=== PATIENT | female | born 1985 | race Caucasian/White ===

== ENCOUNTER → 2017-10-22 | Outpatient (CLI) | payer OTHER | LOC: PLD 14:15 → LAB SHORT 14:15 | DX: D23.9 Other benign neoplasm of skin, unspecified (principal) | CPT/HCPCS: 88305 ==

== ENCOUNTER → 2019-01-13 | Outpatient (CLI) | payer OTHER ==
[2019-01-17 16:06] LABS: HPV 16 Negative (Negative); HPV 18 Negative (Negative); HPV OTHER HR TYPES Negative (Negative)
== END | disposition home or self-care (01) ==
LOC: LAB 14:44 → LAB SHORT 14:44
PROVIDERS: Obstetrics & Gynecology
DX: Z01.419 Encounter for gynecological examination (general) (routine) without abnormal findings (principal)
CPT/HCPCS: 87624; G0123

== ENCOUNTER → 2021-04-11 | Outpatient (CLI) | payer BC ==
[2021-04-12 16:11] LABS: HPV 16 Negative (Negative); HPV 18 Negative (Negative); HPV OTHER HR TYPES Negative (Negative)
== END | disposition home or self-care (01) ==
LOC: LAB SHORT 16:39 → LAB 16:39
PROVIDERS: Obstetrics & Gynecology
DX: Z12.4 Encounter for screening for malignant neoplasm of cervix (principal)
CPT/HCPCS: 87624; G0123